=== PATIENT | male | born 1965 | race African-American/Black ===

== ENCOUNTER 2025-02-24 19:10 | Inpatient (IN) | payer MEDICAID ==
[~2025-02-24] VITALS: Ht 175.3 cm; Wt 121.7 kg
[2025-02-24 19:58] LABS: BASOPHILS % 0.4 % (0.0-2.0); EOSINOPHILS % 0.2 % (0.0-5.0); HEMATOCRIT. 39.6 % (42.0-52.0); HEMOGLOBIN. 12.7 g/dL (14.0-18.0); MEAN CORPUSCULAR HEMOGLOBIN 30.6 pg (28.0-32.0); MEAN CORPUSCULAR VOLUME 95.7 fL (80.0-94.0); MEAN PLATELET VOLUME 9.3 fl (7.4-10.4); MONOCYTES % 7.7 % (2.0-8.0); NEUTROPHILS % 76.7 % (40.0-76.0); PLATELET 180 x1000/uL (130-400); RED BLOOD CELL COUNT 4.14 mill/uL (4.7-6.1); RED CELL DISTRIBUTION WIDTH 19.6 % (11.6-14.6); WHITE BLOOD COUNT 5.2 x1000/uL (4.5-11.0)
[2025-02-24 20:07] LABS: D-DIMER 0.52 mg/L FEU (<0.50); PARTIAL THROMBOPLASTIN TIME 27.3 sec (23.4-31.0); PROTHROMBIN TIME 10.9 sec (9.6-11.0)
[2025-02-24 20:09] LABS: CHLORIDE 109 mEq/L (98-107); POTASSIUM 4.6 mEq/L (3.5-5.1); SODIUM 141 mEq/L (136-145)
[2025-02-24 20:10] LABS: CALCIUM 9.4 mg/dL (8.7-10.4); CARBON DIOXIDE 22 mEq/L (21-32)
[2025-02-24 20:15] LABS: GLUCOSE 111 mg/dL (70-105); UREA NITROGEN BLOOD 18 mg/dL (9-23)
[2025-02-24] MEDS: ONDANSETRON HCL 4MG/2ML INJ IV STA ×2 (20:35→22:45)
[2025-02-24 20:38] LABS: TROPONIN I HIGH SENSITIVITY 5720 ng/L (3.0-53)
[2025-02-24] MEDS: DIPHENHYDRAMINE 50MG/ML VIAL IV ONE (20:38)
[2025-02-24] MEDS: MORPHINE SULFATE 4 MG/ML INJ (FOR IV/IM USE) IV STA ×2 (20:44→22:48)
[2025-02-24] MEDS ORDERED: HEPARIN 25,000 UNITS PREMIX 250 ML IV STA (21:36)
[2025-02-24] MEDS ORDERED: HEPARIN 5000 UNITS/ML VIAL IV ONE (21:45)
[2025-02-24 21:52] LABS: *AMPHETAMINES SCREEN URINE NEGATIVE (NEGATIVE)
[2025-02-24 21:54] LABS: *BARBITURATES SCREEN URINE NEGATIVE (NEGATIVE); *BENZODIAZEPINES SCREEN URINE NEGATIVE (NEGATIVE); *COCAINE SCREEN URINE NEGATIVE (NEGATIVE); CANNABINOID URINE SCREEN NEGATIVE (NEGATIVE); ECSTASY MDMA SCREEN URINE NEGATIVE (NEGATIVE); METHADONE URINE SCREEN NEGATIVE (NEGATIVE); OPIATES URINE SCREEN NEGATIVE (NEGATIVE); PHENCYCLIDINE URINE SCREEN NEGATIVE (NEGATIVE)
[2025-02-24] MEDS: HEPARIN 60 UNITS/KG BOLUS IV NR (22:24)
[2025-02-24] MEDS ORDERED: NITROGLYCERIN 50MG PREMIX 250 ML IV ONE (22:30)
[2025-02-24] MEDS: HEPARIN 25,000 UNITS PREMIX 250 ML IV SCH (22:59)
[2025-02-24] MEDS ORDERED: ACETAMINOPHEN 325MG TABLET PO PRN ×2 (23:15)
[2025-02-24] MEDS ORDERED: DOCUSATE SODIUM 100MG CAPSULE PO PRN (23:15)
[2025-02-24] MEDS ORDERED: MAGNESIUM/ALUMINUM HYDROXIDE/SIMETHICONE 30ML UDC PO PRN (23:15)
[2025-02-24] MEDS ORDERED: CLONIDINE 0.1MG TABLET PO PRN (23:15)
[2025-02-24] MEDS ORDERED: EMPA10TA PO (23:20)
[2025-02-24] MEDS ORDERED: PANT40TA51 PO (23:20)
[2025-02-24] MEDS ORDERED: RIVA20TA PO (23:20)
[2025-02-24] MEDS ORDERED: TIZA-204 PO (23:20)
[2025-02-24] MEDS ORDERED: METO-396 PO (23:20)
[2025-02-24] MEDS ORDERED: LOSA25TA26 PO (23:20)
[2025-02-24] MEDS ORDERED: FURO20TA4 PO (23:20)
[2025-02-24] MEDS ORDERED: THIA100T88 PO (23:20)
[2025-02-24] MEDS ORDERED: SPIR25TA6 PO (23:20)
[2025-02-24] MEDS ORDERED: HEPARIN 5000 UNITS/ML VIAL IV PRN ×2 (23:30)
[2025-02-24] MEDS ORDERED: HEPARIN 25,000 UNITS PREMIX 250 ML IV PRN (23:30)
[2025-02-24 23:58] LABS: T4 FREE 1.09 ng/dL (0.89-1.76); THYROID STIMULATING HORMONE 2.96 uIU/mL (0.55-4.78)
[2025-02-25] VITALS (100 sets, daily range): BP systolic 58–152; BP diastolic 27–123; PULSE 63–82; RESP 11–44; TEMP 36.7–37.3; O2SAT 91–100
[2025-02-25] MEDS: NITROGLYCERIN 0.4MG TABLET SL SL PRN (00:38)
[2025-02-25] MEDS ORDERED: IOHEXOL-350 100 ML BOTTLE ONE (00:44)
[2025-02-25] MEDS: MORPHINE SULFATE 2 MG/ML INJ (NOT FOR IM USE) IV PRN ×3 (01:14→17:06)
[2025-02-25] MEDS: DEXT 5%/0.9% NACL 1,000 ML IV NR (01:36)
[2025-02-25] MEDS ORDERED: HEPARIN BOLUS PRN aPTT <30 IV (04:00)
[2025-02-25 04:24] LABS: BASOPHILS % 0.9 % (0.0-2.0); EOSINOPHILS % 1.4 % (0.0-5.0); HEMATOCRIT. 40.4 % (42.0-52.0); HEMOGLOBIN. 13.1 g/dL (14.0-18.0); LYMPHOCYTES % 20.9 % (20.0-50.0); MEAN CORPUSCULAR HEMOGLOBIN 30.4 pg (28.0-32.0); MEAN CORPUSCULAR HGB CONC 32.3 g/dL (31.0-37.0); MEAN CORPUSCULAR VOLUME 93.9 fL (80.0-94.0); MEAN PLATELET VOLUME 9.3 fl (7.4-10.4); MONOCYTES % 12.6 % (2.0-8.0); NEUTROPHILS % 64.2 % (40.0-76.0); PLATELET 182 x1000/uL (130-400); RED CELL DISTRIBUTION WIDTH 19.4 % (11.6-14.6); WHITE BLOOD COUNT 5.8 x1000/uL (4.5-11.0)
[2025-02-25 04:35] LABS: CARBON DIOXIDE 25 mEq/L (21-32); CHLORIDE 106 mEq/L (98-107); POTASSIUM 4.6 mEq/L (3.5-5.1); SODIUM 141 mEq/L (136-145)
[2025-02-25 04:36] LABS: CALCIUM 9.4 mg/dL (8.7-10.4)
[2025-02-25 04:40] LABS: CREATININE 1.1 mg/dL (0.6-1.3); GLUCOSE 127 mg/dL (70-105)
[2025-02-25 04:41] LABS: CREATINE KINASE MB FRACTION > 300.0 ng/mL (0.5-3.6); UREA NITROGEN BLOOD 17 mg/dL (9-23)
[2025-02-25 04:42] LABS: ALANINE AMINOTRANSFERASE 41 IU/L (10-49); ALBUMIN 4.2 g/dL (3.2-4.8); ASPARTATE AMINOTRANSFERASE 174 IU/L (<34)
[2025-02-25 04:43] LABS: BILIRUBIN DIRECT 0.5 mg/dL (<=3.0); BILIRUBIN TOTAL 1.7 mg/dL (0.1-1.0); PHOSPHORUS 3.3 mg/dL (2.5-4.9); PROTEIN TOTAL 7.4 g/dL (6.0-8.3)
[2025-02-25] MEDS: ONDANSETRON HCL 4MG/2ML INJ IV PRN (04:50)
[2025-02-25 04:54] LABS: CREATINE KINASE 2270 IU/L (46-171)
[2025-02-25 05:03] LABS: TROPONIN I HIGH SENSITIVITY 36797 ng/L (3.0-53)
[2025-02-25 05:09] LABS: CLARITY URINE CLEAR (CLEAR); COLOR URINE DARK YELLOW (YELLOW); GLUCOSE URINE TRACE (NEGATIVE); KETONES URINE 1+ (NEGATIVE); LEUKOCYTE ESTERASE URINE NEGATIVE (NEGATIVE); NITRITE URINE NEGATIVE (NEGATIVE); OCCULT BLOOD URINE TRACE (NEGATIVE); PROTEIN URINE 2+ (NEGATIVE); SPECIFIC GRAVITY URINE 1.061 (1.005-1.030)
[2025-02-25] MEDS: HEPARIN BOLUS PRN aPTT 30-44 IV (05:14)
[2025-02-25 07:20] LABS: BACTERIA URINE NONE SEEN; RBC URINE NONE SEEN /hpf (0-2); SQUAMOUS EPITHELIAL CELL URINE 1+ /lpf (RARE/1+); WBC URINE 0-2 /hpf (0-2)
[2025-02-25] MEDS: METOCLOPRAMIDE HCL 10MG/2ML VIAL IV NR (07:44)
[2025-02-25] MEDS ORDERED: MORPHINE SULFATE 2 MG/ML INJ (NOT FOR IM USE) IV NR (07:45)
[2025-02-25] MEDS ORDERED: LIDOCAINE HCL 1% 20ML VIAL ONE (07:47)
[2025-02-25] MEDS ORDERED: HEPARIN 1000 UNITS/ML 10ML ONE ×2 (07:48→08:53)
[2025-02-25] MEDS ORDERED: IODIXANOL 320MG/ML 100 ML BOTTLE IV ONE ×2 (07:48→08:51)
[2025-02-25] MEDS ORDERED: VERAPAMIL HCL 2.5 MG/1 ML 2ML VIAL IV ONE (07:48)
[2025-02-25] MEDS ORDERED: DIPHENHYDRAMINE 50MG/ML VIAL ONE (07:54)
[2025-02-25] MEDS ORDERED: ONDANSETRON HCL 4MG/2ML INJ ONE (07:54)
[2025-02-25] MEDS ORDERED: FENTANYL CITRATE/PF 50MCG/ML 2ML VIAL ONE (07:55)
[2025-02-25] MEDS ORDERED: MIDAZOLAM HCL 2 MG/2 ML VIAL ONE (07:55)
[2025-02-25] MEDS ORDERED: NALOXONE HCL 0.4MG/ML VIAL IV PRN (08:00)
[2025-02-25] MEDS ORDERED: ATROPINE SULFATE 1MG/10ML SYR ONE (08:48)
[2025-02-25] MEDS ORDERED: EPTIFIBATIDE 2 MG/ML 10ML VIAL IV ONE (08:52)
[2025-02-25] MEDS: PANTOPRAZOLE SODIUM 40 MG/VIAL IV SCH (09:00)
[2025-02-25] MEDS ORDERED: ASPIRIN 325MG TABLET ONE (09:23)
[2025-02-25] MEDS ORDERED: CLOPIDOGREL 75MG TABLET ONE (09:24)
[2025-02-25] MEDS ORDERED: ATROPINE SULFATE 1MG/10ML SYR IV PRN (10:45)
[2025-02-25] MEDS: SODIUM CHLORIDE 0.45% 250 ML IV ONE (11:27)
[2025-02-25] MEDS: ACETAMINOPHEN 325MG TABLET PO PRN (11:27)
[2025-02-25 15:57] LABS: CREATINE KINASE MB FRACTION > 300.0 ng/mL (0.5-3.6)
[2025-02-25 16:10] LABS: CREATINE KINASE 3406 IU/L (46-171)
[2025-02-25 16:36] LABS: TROPONIN I HIGH SENSITIVITY > 125000 ng/L (3.0-53)
[2025-02-25] MEDS: ENOXAPARIN 150MG/ML SYR SUBCUT SCH (17:11)
[2025-02-25] MEDS: IPRATROPIUM/ALBUTEROL 0.5-3(2.5)MG/3ML NEB HHN PRN (18:37)
[2025-02-25] MEDS: GUAIFENESIN 200MG/10ML SUGAR FREE UDC PO PRN (20:29)
[2025-02-25] MEDS: ATORVASTATIN CALCIUM 40MG TABLET PO SCH (20:29)
[2025-02-25] MEDS ORDERED: ENOXAPARIN 40MG/0.4ML SYR SUBCUT SCH (21:00)
[2025-02-26] VITALS (38 sets, daily range): BP systolic 77–132; BP diastolic 40–87; PULSE 71–88; RESP 17–33; TEMP 36.4–37.1; O2SAT 91–98
[2025-02-26] MEDS: CLOPIDOGREL 75MG TABLET PO SCH (08:14)
[2025-02-26] MEDS: ASPIRIN 81MG TABLET PO SCH (08:15)
[2025-02-26 08:37] LABS: HEMATOCRIT. 38.3 % (42.0-52.0); HEMOGLOBIN. 12.4 g/dL (14.0-18.0); MEAN CORPUSCULAR HEMOGLOBIN 30.3 pg (28.0-32.0); MEAN CORPUSCULAR HGB CONC 32.4 g/dL (31.0-37.0); MEAN CORPUSCULAR VOLUME 93.5 fL (80.0-94.0); MEAN PLATELET VOLUME 9.8 fl (7.4-10.4); PLATELET 188 x1000/uL (130-400); RED BLOOD CELL COUNT 4.09 mill/uL (4.7-6.1); RED CELL DISTRIBUTION WIDTH 19.3 % (11.6-14.6); WHITE BLOOD COUNT 6.5 x1000/uL (4.5-11.0)
[2025-02-26 08:46] LABS: DIFFERENTIAL COMMENT 1
[2025-02-26] MEDS ORDERED: CLOPIDOGREL 75MG TABLET PO SCH (09:00)
[2025-02-26] MEDS ORDERED: ASPIRIN 81MG TABLET PO SCH (09:00)
[2025-02-26 09:20] LABS: CARBON DIOXIDE 23 mEq/L (21-32); CHLORIDE 106 mEq/L (98-107); POTASSIUM 4.3 mEq/L (3.5-5.1); SODIUM 135 mEq/L (136-145)
[2025-02-26 09:21] LABS: CALCIUM 9.6 mg/dL (8.7-10.4)
[2025-02-26 09:25] LABS: CREATININE 0.9 mg/dL (0.6-1.3)
[2025-02-26 09:26] LABS: GLUCOSE 111 mg/dL (70-105); UREA NITROGEN BLOOD 12 mg/dL (9-23)
[2025-02-26 11:16] LABS: ANISOCYTOSIS 2+; PLATELET ESTIMATE NORMAL
[2025-02-27] VITALS: BP 92/66; PULSE 78; RESP 24; TEMP 36.7; O2SAT 97
[2025-02-27 04:00] VITALS: BP 115/74; PULSE 78; RESP 16; TEMP 36.8; O2SAT 98
[2025-02-27 08:00] VITALS: BP 141/113; PULSE 81; RESP 21; TEMP 36.7; O2SAT 99
[2025-02-27] MEDS: FUROSEMIDE 40MG TABLET PO SCH (08:57)
[2025-02-27] MEDS: SPIRONOLACTONE 25MG TABLET PO SCH (08:57)
[2025-02-27] MEDS: METOPROLOL SUCCINATE 50MG ER TABLET PO SCH (08:57)
[2025-02-27 12:00] VITALS: BP 108/93; PULSE 83; RESP 26; TEMP 36.8; O2SAT 98
[2025-02-27] MEDS ORDERED: ASPI-1160 PO (13:42)
[2025-02-27] MEDS ORDERED: RIVA20TA PO (13:42)
[2025-02-27] MEDS ORDERED: PANT40TA51 PO (13:42)
[2025-02-27] MEDS ORDERED: LIP40 PO (13:42)
[2025-02-27] MEDS ORDERED: METO-396 PO (13:42)
[2025-02-27] MEDS ORDERED: SPIR25TA6 PO (13:42)
[2025-02-27] MEDS ORDERED: CLOP-31 PO (13:42)
[2025-02-27] MEDS ORDERED: FURO40TA5 PO (13:42)
[2025-02-27] MEDS ORDERED: THIA100T88 PO (13:42)
[2025-02-27 15:11] VITALS: BP 103/62; PULSE 77; TEMP 98; O2SAT 96
[2025-02-27] MEDS ORDERED: ENOXAPARIN 120MG/0.8ML SYR SUBCUT SCH (18:00)
== END 2025-02-27 19:08 | disposition home or self-care (01) | DRG 175 ==
LOC: ER 19:10 → EDBEDREQ 19:24 → CVICU 22:19 → EDBEDREQSVC 22:22 → EDBEDREQ 22:22 → 3WST 02-26 14:30
PROVIDERS: ADMIT Internal Medicine; ATTEND Internal Medicine
PROC: 027035Z Dilation of Coronary Artery, One Artery with Two Drug-eluting Intraluminal Devices, Percutaneous Approach (ICD-10-PCS; principal; 2025-02-25)
PROC: 4A023N7 Measurement of Cardiac Sampling and Pressure, Left Heart, Percutaneous Approach (ICD-10-PCS; 2025-02-25)
PROC: B211YZZ Fluoroscopy of Multiple Coronary Arteries using Other Contrast (ICD-10-PCS; 2025-02-25)
PROC: B240ZZ3 Ultrasonography of Single Coronary Artery, Intravascular (ICD-10-PCS; 2025-02-25)
PROC: 02C03ZZ Extirpation of Matter from Coronary Artery, One Artery, Percutaneous Approach (ICD-10-PCS; 2025-02-25)
DX: T82.855A Stenosis of coronary artery stent, initial encounter (principal); I21.4 Non-ST elevation (NSTEMI) myocardial infarction; I50.23 Acute on chronic systolic (congestive) heart failure; M62.82 Rhabdomyolysis; I82.411 Acute embolism and thrombosis of right femoral vein; E86.0 Dehydration; E11.9 Type 2 diabetes mellitus without complications; I11.0 Hypertensive heart disease with heart failure; E78.5 Hyperlipidemia, unspecified; I25.10 Atherosclerotic heart disease of native coronary artery without angina pectoris; J44.9 Chronic obstructive pulmonary disease, unspecified; F10.90 Alcohol use, unspecified, uncomplicated; F17.210 Nicotine dependence, cigarettes, uncomplicated; Z79.01 Long term (current) use of anticoagulants; Z79.02 Long term (current) use of antithrombotics/antiplatelets; Z79.82 Long term (current) use of aspirin; Z79.84 Long term (current) use of oral hypoglycemic drugs; Z79.899 Other long term (current) drug therapy; Z95.810 Presence of automatic (implantable) cardiac defibrillator; Y83.8 Other surgical procedures as the cause of abnormal reaction of the patient, or of later complication, without mention of misadventure at the time of the procedure; Y92.89 Other specified places as the place of occurrence of the external cause
CPT/HCPCS: 36415; 71045; 71275; 80048; 80076; 80305; 81003; 82550; 82553; 83036; 83735; 83880; 84100; 84439; 84443; 84484; 85025; 85347; 85379; 92941; 93005; 93306; 93454; 93970; 94640; 99291; A4606; C1753; C1769; C1874; C1887; C1893; J0461; J1200; J1327; J1644; J1650; J2250; J2270; J2405; J2470; J2765; J3010; J3490; Q9967